=== PATIENT | female | born 2000 | race African-American/Black ===

== ENCOUNTER 2024-03-15 10:15 | Outpatient (CLI) | payer MEDICAID ==
[2024-03-15 21:42] LABS: CHLAMYDIA TRACHOMATIS DNA NEGATIVE (NEGATIVE); NEISSERIA GONORRHOEAE DNA NEGATIVE (NEGATIVE)
[2024-03-15 23:51] LABS: BACTERIAL VAGINOSIS DNA NEGATIVE (NEGATIVE); CANDIDA GLABRATA DNA NEGATIVE (NEGATIVE); CANDIDA GROUP DNA POSITIVE (NEGATIVE); CANDIDA KRUSEI DNA NEGATIVE (NEGATIVE); TRICHOMONAS VAGINALIS DNA NEGATIVE (NEGATIVE)
[2024-03-17 06:11] LABS: RPR Non Reactive (Non Reactive)
[2024-03-17 07:10] LABS: HSV 1 IGG TYPE SPEC <0.91 index (0.00-0.90); HSV 2 IGG TYPE SPEC <0.91 index (0.00-0.90)
[2024-03-18 00:08] LABS: HCV AB Non Reactive (Non Reactive)
== END 2024-03-15 10:30 | disposition home or self-care (01) ==
LOC: LAB.N 10:15
PROVIDERS: ATTEND Physician Assistant
DX: Z11.3 Encounter for screening for infections with a predominantly sexual mode of transmission (principal)
CPT/HCPCS: 81514; 86592; 86695; 86696; 86803; 87491; 87591; 87661

== ENCOUNTER 2024-03-30 09:33 | Emergency (ER) | payer MEDICAID ==
[2024-03-30 10:03] VITALS: O2SAT 98
[2024-03-30 10:11] LABS: BILIRUBIN,URINE NEGATIVE (NEGATIVE); GLUCOSE, URINE (UA) NEGATIVE (NEGATIVE); KETONES,URINE (UA) NEGATIVE (NEGATIVE); LEUKOCYTE ESTERASE, URINE NEGATIVE (NEGATIVE); NITRITE,URINE NEGATIVE (NEGATIVE); OCCULT BLOOD,URINE NEGATIVE (NEGATIVE); PH,URINE 7.5 PH (5.0-7.5); PROTEIN,URINE NEGATIVE (NEGATIVE); UROBILINOGEN,URINE 0.2 (NORMAL) E.U./dL (NORMAL)
[2024-03-30 10:14] LABS: CLARITY,URINE CLEAR (CLEAR); HCG UR QUAL NEGATIVE
[2024-03-30 11:07] LABS: BASOPHILS # (AUTO) 0.1 10^3/uL (0.0-0.1); BASOPHILS % (AUTO) 0.7 %; EOSINOPHILS # (AUTO) 0.5 10^3/uL (0.0-0.7); HCT - HEMATOCRIT 36.6 % (37.0-47.0); HGB - HEMOGLOBIN 11.9 g/dL (12.0-16.0); LYMPHOCYTES # (AUTO) 2.1 10^3/uL (1.5-3.5); LYMPHOCYTES % (AUTO) 24.9 %; MEAN CORPUSCULAR HEMOGLOBIN 30.9 pg (27.0-31.0); MEAN CORPUSCULAR HGB CONC 32.5 g/dL (32.0-36.0); MEAN CORPUSCULAR VOLUME 95.1 fL (81.0-99.0); MONOCYTES # (AUTO) 0.5 10^3/uL (0.0-1.0); MONOCYTES % (AUTO) 6.2 %; NEUTROPHILS # (AUTO) 5.3 10^3/uL (1.5-6.6); PLT - PLATELET COUNT 331 10^3/uL (130-450); RED BLOOD COUNT 3.85 10^6/uL (4.20-5.40); RED CELL DISTRIBUTION WIDTH 12.8 % (12.0-15.0); WHITE BLOOD COUNT 8.6 x10^3/uL (4.8-10.8)
[2024-03-30 11:21] LABS: ALBUMIN 3.9 g/dL (3.2-5.5); ALBUMIN/GLOBULIN RATIO 1.2 (1.0-2.2); BILIRUBIN,TOTAL 0.3 mg/dL (0.2-1.0); CALCIUM 9.3 mg/dL (8.5-10.3); CREATININE 0.7 mg/dL (0.6-1.3); POTASSIUM 4.3 mmol/L (3.5-4.5); TOTAL PROTEIN 7.1 g/dL (6.4-8.9)
--- NOTE | 2024-03-30 11:54 | ED Physician Documentation ---
PD HPI FEMALE - Stated complaint Stated Complaint: - Chief complaint Chief Complaint: Abd Pain - History obtained from History obtained from: Patient - History of Present Illness Timing - onset: How many months ago (9) Timing - duration: Months (9) Timing - details: Gradual onset, Now resolved, Waxing and waning Associated symptoms: Pelvic pain, Vaginal bleeding Contributing factors: No: Similar symptoms before: Diagnosis (dysfunctional uterine bleeding) Recently seen: Not recently seen - Additional information Additional information: Berenice Charles is a 23-year-old female who had a done 14 months ago. She eventually began her cycle and this has been irregular sometimes with significant flow. She has not had periods last more than a week. She has been into the urgent care clinic to be evaluated for STD and that was a negative evaluation. She is here today with these general complaints and unable to get into see someone at the women's clinic until the middle of May. Review of Systems Constitutional: denies: Fever Ears: denies: Ear pain Nose: denies: Congestion Throat: denies: Sore throat Respiratory: denies: Cough GI: denies: Nausea, Vomiting, Constipation, Diarrhea : reports: Irregular menses, Other (pelvic cramping --- sometimes.). 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 - Present Medications Home Medications: Ambulatory Orders Medication Instructions Recorded Confirmed No Known Home Medications 03/30/24 03/30/24 - Allergies Allergies/Adverse Reactions: Allergies Allergy/AdvReac Type Severity Reaction Status Date / Time No Known Drug Allergies Allergy Verified 03/30/24 09:57 - Social History Does the pt smoke?: No Smoking Status: Never smoker Does the pt drink ETOH?: No Substance Use and Type: Marijuana - Immunizations Immunizations are current?: Yes PD ED PE NORMAL - Vitals Vital signs reviewed: Yes (normal ) - General General: Alert and oriented X 3, No acute distress - HEENT HEENT: Atraumatic, PERRL, EOMI - Respiratory Respiratory: No respiratory distress - Derm Derm: Normal color, Warm and dry, No rash - Extremities Extremities: No deformity, No edema - Neuro Neuro: Alert and oriented X 3, 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1 [place] # (Auto) 0.5 Eos # (Auto) 0.5 Baso # (Auto) 0.1 Absolute Nucleated RBC 0.00 Nucleated RBC % 0.0 Sodium 137 Potassium 4.3 Chloride 105 Carbon Dioxide 28 Anion Gap 4.0 L BUN 10 Creatinine 0.7 Estimated GFR (MDRD) 125 Glucose 100 Calcium 9.3 Total Bilirubin 0.3 AST 12 ALT 11 Alkaline Phosphatase 68 Total Protein 7.1 Albumin 3.9 Globulin 3.2 Albumin/Globulin Ratio 1.2 Lipase 18 Urine Color YELLOW Urine Clarity CLEAR Urine pH 7.5 Ur Specific [place] 1.020 Urine Protein NEGATIVE Urine Glucose (UA) NEGATIVE Urine Ketones NEGATIVE Urine Occult Blood NEGATIVE Urine Nitrite NEGATIVE Urine Bilirubin NEGATIVE Urine Urobilinogen 0.2 (NORMAL) Ur Leukocyte Esterase NEGATIVE Ur Microscopic Review NOT INDICATED Urine Culture Comments NOT INDICATED Urine HCG, Qual NEGATIVE PD Medical Decision Making - ED course Complexity details: reviewed old records, reviewed results, considered differential, d/w patient Reviewed Lab Results: We reviewed a complete blood count showing a normal white blood cell count hemoglobin low at 11.9 and hematocrit low at 36.6 we have no comparisons for these. Chemistries were unremarkable with normal electrolytes normal kidney and liver function urinalysis clear yellow urine negative for any signs of infection and negative hCG. These laboratory studies do not contribute to any specific diagnosis they are reassuring that the patient is not she has not had significant enough bleeding to cause significant change in her H&H. ED course: 23-year-old female with nonspecific irregular menses and excessive bleeding with menses is currently not bleeding and not in pain. She does have an appointment to see the women's clinic in 2 months time and I was able to call the women's clinic to asked them to kindly see her sooner and they were graciously able to do that. Departure - Departure Disposition: Home, Self Care Clinical Impression: Dysfunctional uterine bleeding Condition: Stable Instructions: ED Bleed Irregular Vaginal Follow-Up: Cam Carrillo, JOHNNY, BULK PICKER, SCLEROSCOPE TESTER [Primary Care Provider] - [facility] [Provider Group] Comments: Berenice, today your blood counts are nearly normal and I have asked the women's health clinic to call you today to make an appointment for sooner than May. Forms: PCP List Discharge Date/Time: 03/30/24 12:02
[2024-03-30 12:03] VITALS: BP 107/74
== END 2024-03-30 12:02 | disposition home or self-care (01) ==
LOC: ED 09:33
DX: N93.8 Other specified abnormal uterine and vaginal bleeding (principal)
CPT/HCPCS: 36415; 80053; 81001; 81003; 81025; 83690; 85025; 87086; 99283

== ENCOUNTER 2024-03-31 15:42 | Outpatient (CLI) | payer MEDICAID ==
[2024-03-31 16:38] LABS: THYROID STIMULATING HORMONE 0.39 uIU/mL (0.34-5.60)
[2024-03-31 21:23] LABS: ESTIMATED AVERAGE GLUCOSE 91 mg/dL (70-100); HEMOGLOBIN A1c% 4.8 % (4.27-6.07)
== END 2024-03-31 15:43 | disposition home or self-care (01) ==
LOC: LAB 15:42
PROVIDERS: ATTEND Obstetrics & Gynecology
DX: N92.6 Irregular menstruation, unspecified (principal)
CPT/HCPCS: 36415; 83036; 84439; 84443

== ENCOUNTER 2024-04-09 11:39 | Emergency (ER) | payer MEDICAID ==
[2024-04-09 12:43] LABS: B. PARAPERTUSSIS- RESP PCR PAN NOT DETECTED; B. PERTUSSIS- RESP PCR PANEL NOT DETECTED; C. PNEUMONIAE- RESP PCR PANEL NOT DETECTED; CORONAVIRUS 229E-RESP PCR NOT DETECTED; CORONAVIRUS HKU1-RESP PCR NOT DETECTED; CORONAVIRUS NL63-RESP PCR NOT DETECTED; CORONAVIRUS OC43-RESP PCR NOT DETECTED; HUMAN METAPNEUMOVIRUS NOT DETECTED; INFLUENZA A- RESP PCR PANEL NOT DETECTED; INFLUENZA B - RESP PCR PANEL NOT DETECTED; M. PNEUMONIAE- RESP PCR PANEL NOT DETECTED; PARAINFLUENZA VIRUS 1 NOT DETECTED; PARAINFLUENZA VIRUS 2 NOT DETECTED; PARAINFLUENZA VIRUS 3 NOT DETECTED; PARAINFLUENZA VIRUS 4 DETECTED; RHINOVIRUS/ENTEROVIRUS NOT DETECTED; RSV- RESP PCR PANEL NOT DETECTED; SARS-CoV-2 -RESP PCR PANEL NOT DETECTED
--- NOTE | 2024-04-09 13:07 | ED Physician Documentation ---
PD HPI URI - Stated complaint Stated Complaint: SORE THROAT,CONGESTION,LOSS OF TASTE,DIZZINESS - Chief complaint Chief Complaint: Heent - History obtained from History obtained from: Patient - Additional information Additional information: 23-year-old female with no significant past medical history presented with about a weeklong history of cough congestion And mild sore throat. She states she initially thought this was allergies and has been taking Benadryl without any improvement. She also tried Mucinex with no relief.No known fever, no shortness of breath no GI symptoms. She has no history of lung disease or asthma. Review of Systems Constitutional: reports: Reviewed and negative Eyes: reports: Reviewed and negative Ears: reports: Reviewed and negative Nose: reports: Rhinorrhea / runny nose, Congestion Throat: reports: Sore throat Cardiac: reports: Reviewed and negative Respiratory: reports: Cough. 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 - Present Medications Home Medications: Ambulatory Orders Medication Instructions Recorded Confirmed Albuterol Sulf [Ventolin Hfa 1 - 2 puffs INH Q4HR PRN #1 each 04/09/24 Inhaler] Pseudoephedrine [Sudafed] 30 mg PO Q6H PRN #20 tablet 04/09/24 - Allergies Allergies/Adverse Reactions: Allergies Allergy/AdvReac Type Severity Reaction Status Date / Time No Known Drug Allergies Allergy Verified 04/09/24 11:49 - Social History Does the pt smoke?: No Smoking Status: Never smoker Does the pt drink ETOH?: No Does the pt have substance abuse?: No - Immunizations Immunizations are current?: Yes - POLST Patient has POLST: No PD ED PE NORMAL - Vitals Vital signs reviewed: Yes - General General: Alert and oriented X 3, No acute distress, Well developed/nourished - HEENT HEENT: Atraumatic, Ears normal, Moist mucous membranes, Pharynx benign - Neck Neck: Supple, no meningeal sign, No JVD - Cardiac Cardiac: RRR, No murmur - Respiratory Respiratory: No respiratory distress, Other (Occasional expiratory wheeze right side) - Abdomen Abdomen: Normal bowel sounds, Soft, Non tender, Non distended - Derm Derm: Normal color, Warm and dry, No rash Results - Vitals Vitals: Vital Signs - 24 hr 04/09/24 11:43 Temperature 36.1 C L Heart Rate 71 Respiratory 18 Rate Blood Pressure 115/67 O2 Saturation 97 Oxygen O2 Source Room air - Labs Labs: Laboratory Tests 04/09/24 11:50 Nasal Adenovirus (PCR) NOT DETECTED Nasal B. parapertussis DNA (PCR) NOT DETECTED Nasal Coronavir 229E PCR NOT DETECTED Nasal Coronavir HKU1 PCR NOT DETECTED Nasal Coronavir NL63 PCR NOT DETECTED Nasal Coronavir OC43 PCR NOT DETECTED Nasal Enterovir/Rhinovir PCR NOT DETECTED Nasal Influenza B PCR NOT DETECTED Nasal Influenza A PCR NOT DETECTED Nasal Parainfluen 1 PCR NOT DETECTED Nasal Parainfluen 2 PCR NOT DETECTED Nasal Parainfluen 3 PCR NOT DETECTED Nasal Parainfluen 4 PCR DETECTED A Nasal RSV (PCR) NOT DETECTED Nasal B.pertussis DNA PCR NOT DETECTED Nasal C.pneumoniae (PCR) NOT DETECTED Raphael Human Metapneumo PCR NOT DETECTED Nasal M.pneumoniae (PCR) NOT DETECTED Nasal SARS-CoV-2 (PCR) NOT DETECTED PD Medical Decision Making - ED course Complexity details: reviewed results, considered differential, d/w patient ED course: 23-year-old female presented with cough nasal congestion and sore throat as described in HPI. The patient is well-appearing here on physical exam, afebrile nontoxic no acute distress. Viral panel was obtained which is positive for parainfluenza virus which is likely the cause of her symptoms. I have low suspicion for pneumonia given her physical exam, and there are no signs of strep throat on physical exam. Recommended supportive measures for this illness which should improve over the next several days, she can continue the Mucinex, and I have added Sudafed as needed as well as albuterol as needed for occasional wheeze that is likely viral induced. Recommended plenty of oral fluids and rest.I discussed return precautions if new or worsening symptoms would anticipate improvement in the next week. Departure - Departure Disposition: 01 Home, Self Care Clinical Impression: Viral URI Condition: Good Instructions: ED Viral Syndrome Prescriptions: Albuterol Sulf [Ventolin Hfa Inhaler] 1 - 2 puffs INH Q4HR PRN #1 each PRN Reason: Shortness Of Air/Wheezing Pseudoephedrine [Sudafed] 30 mg PO Q6H PRN #20 tablet PRN Reason: congestion Forms: PCP List
[2024-04-09 13:22] VITALS: BP 114/66; O2SAT 98
== END 2024-04-09 13:16 | disposition home or self-care (01) ==
LOC: ED 11:39
DX: J06.9 Acute upper respiratory infection, unspecified (principal); B97.89 Other viral agents as the cause of diseases classified elsewhere
CPT/HCPCS: 87633; 99282; 99283

== ENCOUNTER 2024-04-16 15:30 | Outpatient (CLI) | payer MEDICAID ==
--- NOTE | 2024-04-16 22:07 | Ultrasound Report ---
PROCEDURE: Pelvic w/Transvaginal INDICATIONS: IRREGULAR MENSES TECHNIQUE: Real-time scanning was performed of the pelvic organs, with image documentation. Additional endovagi nal scanning was necessary due to incomplete visualization of the adnexal and endometrial structures by transabdominal scanning. COMPARISON: None. FINDINGS: Uterus: Uterus is anteverted and enlarged in size at 9.0 x 3.7 x 4.9 cm. The myometrium is heteroge neous. The endometrium measures 6 mm in combined thickness. No gross endometrial mass or fluid. Ovaries: The right ovary measures 2.7 x 2.4 x 2.1 cm, with a calculated ovarian volume of 7.0 cc. T he left ovary measures 3.1 x 1.6 x 2.7 cm, with a calculated ovarian volume of 7.0 cc. The ovaries h ave a normal sonographic appearance. Less than 12 follicles can be seen in each ovary. No adnexal m asses are seen. No cystic lesions measuring greater than 3 cm. Other: No pathologic free abdominal or pelvic fluid. Prominent bilateral adnexal vessels are noted. IMPRESSION: 1. Normal-appearing uterus and endometrium. 2. Normal-appearing bilateral ovaries. 3. Prominent bilateral adnexal vessels which can be seen associated with pelvic congestion syndrome s uggest clinical correlation. Reviewed by: Allen Ponce MD on 04/16/2024 10:06 PM PDT Approved by: Allen Ponce MD on 04/16/2024 10:06 PM PDT Station ID: [id number]
== END 2024-04-16 15:31 | disposition home or self-care (01) ==
LOC: DI 15:30
PROVIDERS: ATTEND Obstetrics & Gynecology
DX: N92.6 Irregular menstruation, unspecified (principal); R93.89 Abnormal findings on diagnostic imaging of other specified body structures